=== PATIENT | male | born 1985 | race Caucasian/White ===

== ENCOUNTER 2019-03-04 12:45 | Outpatient (CLI) | payer OTHER ==
[2019-03-04 13:14] LABS: #Basophils 0.1 thou/uL (0.0-0.2); #Eosinphils 0.1 thou/uL (0.0-0.7); #Lymphocytes 2.2 thou/uL (1.20-3.40); #Monocytes 0.7 thou/uL (0.11-0.59); %Basophils 1.1 % (0.0-1.0); %Lymphocytes 31.5 % (21.0-51.0); %Monocytes 9.6 % (0.0-10.0); %Neutrophils 56.8 % (42.0-75.0); Mean Corpuscular HGB CONC 33.5 g/dL (32.0-36.0); Mean Corpuscular Hemoglobin 28.7 pg (27.0-31.0); Mean Corpuscular Volume 85.7 fL (78.0-98.0); Mean Platelet Volume 8.3 fL (7.4-10.4); Platelet Count 207 thou/uL (130-400); Red Blood Cell (RBC) Count 5.57 mill/uL (4.70-6.10)
[2019-03-04 13:43] LABS: Anion Gap 13 mmol/L (10-20); BUN (Urea Nitrogen) 11 mg/dL (8.9-20.6); Calc. Creatinine Clearance 0 mL/min (70-130); Calcium 9.5 mg/dL (7.8-10.44); Carbon Dioxide 26 mmol/L (22-29); Chloride 103 mmol/L (98-107); Estimated GFR-MDRD 77; Glucose 91 mg/dL (70-105); Potassium 4.2 mmol/L (3.5-5.1); Sodium 138 mmol/L (136-145)
== END 2019-03-04 12:46 | disposition home or self-care (01) ==
LOC: LABBT 12:45
PROVIDERS: ATTEND Specialist
DX: Z01.812 Encounter for preprocedural laboratory examination (principal); K60.3 Anal fistula
CPT/HCPCS: 80048; 85025

== ENCOUNTER 2019-03-05 10:36 | Day surgery (SDC) | payer OTHER ==
[2019-03-04 13:10] VITALS: BMI 32.8
[2019-03-05] MEDS ORDERED: Sodium Chloride 0.9% 100 ML ONE (10:56)
[2019-03-05] MEDS ORDERED: cefOXitin 2 GM VIAL ONE ×2 (10:56)
[2019-03-05] MEDS ORDERED: Ketorolac Tromethamine 30 MG/ML VIAL ONE (10:56)
[2019-03-05] MEDS ORDERED: Fleet Enema 133 ML BOT PR SCH (11:45)
[2019-03-05] MEDS ORDERED: Fentanyl 100 MCG/2 ML VIAL ONE (12:17)
[2019-03-05] MEDS ORDERED: Bupivacaine/Epinephrine 0.25% 30 ML VIAL ONE (12:20)
[2019-03-05] MEDS ORDERED: Lidocaine 2% Jelly 5 ML TUBE ONE (12:20)
--- NOTE | 2019-03-06 09:26 | OP ---
DATE OF PROCEDURE: 03/05/2019 PREOPERATIVE DIAGNOSIS: [id number]. POSTOPERATIVE DIAGNOSIS: [id number]. OPERATION PERFORMED: Complex anal fistulotomy. ANESTHESIA: General endotracheal. INDICATIONS: The patient is a 33-year-old white male. He presents with obvious anal fistula. The external opening is about 3 cm from the anal verge and is located at about the 3 o'clock radian. He is taken to the operating room at this time for examination under anesthesia and fistulotomy. DESCRIPTION OF OPERATION: Informed consent was obtained. The patient was taken to the operating room, where general anesthesia obtained with the patient in supine position. He was placed in dorsal lithotomy position. Perianal area was trimmed of hair, prepped with Betadine, draped in sterile fashion. Local anesthetic was infiltrated in a 4-quadrant intersphincteric fashion using 0.25% Marcaine with epinephrine. Digital and speculum examination were carried out of the anal canal in the rectum. There was no dominant palpable abnormality or mass or any visible abnormality within the anal canal or rectum. Attention was then turned to the external anal fistula opening. I cannulated this easily with an 18-gauge Angiocath and flushed this with peroxide. I was able to visualize the peroxide emanating internally at the dentate line. It was difficult to see the opening as appeared to be coming from under a fold, probably associated with one of the valves of Wick. I then obtained a lacrimal duct probe. I passed this along the fistula tract, but in spite of numerous attempts, I was unable to pass this through the opening into the anal canal. I therefore decided to flush this with peroxide colored with methylene blue. I then dissected along the lacrimal duct probe as far and as it passed, ensuring that I was still dissecting the area of the blue-stained fistula tract. I then dissected further along that fistula tract. I was able to pass the lacrimal duct probe a little further internally. I had at one point the ability to pass the lacrimal duct probe further and it seemed to pass along the tract. I was able at one point to pass this through into the anal canal. Using this as a guide, I dissected further along the top of the lacrimal duct probe. I dissected until I encountered the sphincter mechanism. I dilated the tract with hemostats and curette. I passed a blue vessel loop along the tract as well. It was at this point that I discerned that there was not a significant volume of sphincter and it was all internal sphincter and rather than place a seton, I elected to divide this fairly small segment of internal sphincter. This was done with electrocautery. Hemostasis was obtained with electrocautery and the remainder of the wound was open. I curetted the area that was blue-stained. I then packed the wound with gauze and placed to external gauze dressing along with mesh pants. There were no complications. The patient tolerated the procedure well and was taken to recovery room in stable condition. Job ID: [id number]
== END 2019-03-05 16:00 | disposition home or self-care (01) ==
LOC: SDC 10:36
PROVIDERS: ATTEND Specialist
PROC: 0D8R3ZZ Division of Anal Sphincter, Percutaneous Approach (ICD-10-PCS; principal; 2019-03-05)
DX: K60.3 Anal fistula (principal); I10 Essential (primary) hypertension; F41.9 Anxiety disorder, unspecified; Z79.899 Other long term (current) drug therapy
CPT/HCPCS: J0131; J0694; J1885; J3010; J3490; Q9968

== ENCOUNTER 2024-06-10 18:54 | Emergency (ER) | payer BC, OTHER ==
[~2024-06-10 18:54] MED LIST: Iopamidol-370 76% 500 ML MDV (1 ML CHARGE) ONE
[2024-06-10] MEDS ORDERED: Ketorolac Tromethamine 30 MG (1 mL) VIAL ONE ×2 (19:47→21:21)
[2024-06-10] MEDS ORDERED: Ondansetron PF 4 MG/2 ML Vial ONE (19:48)
[2024-06-10 20:31] LABS: #Basophils 0.04 10x3/uL (0.0-0.2); %Basophils 0.5 % (0.0-1.0); %Eosinophils 0.8 % (0.0-10.0); %Lymphocytes 18.8 % (21.0-51.0); %Monocytes 9.1 % (0.0-10.0); %Neutrophils 70.7 % (42.0-75.0); Hematocrit 46.3 % (42.0-52.0); Hemoglobin 15.5 g/dL (14.0-18.0); Mean Corpuscular HGB CONC 33.5 g/dL (32.0-36.0); Mean Corpuscular Hemoglobin 28.9 pg (27.0-31.0); Mean Corpuscular Volume 86.4 fL (78.0-98.0); Mean Platelet Volume 10.4 fL (7.4-10.4); Platelet Count 243 10x3/uL (130-400); RBC Distribution Width 12.9 % (11.5-14.5); Red Blood Cell (RBC) Count 5.36 mill/uL (4.70-6.10)
[2024-06-10 20:53] LABS: ALT (SGPT) 44 U/L (8-55); AST (SGOT) 43 U/L (5-34); Albumin 4.2 g/dL (3.5-5.0); Alkaline Phosphatase 69 U/L (40-110); Anion Gap 13 mmol/L (10-20); BUN (Urea Nitrogen) 14 mg/dL (8.9-20.6); Bilirubin, Total 0.5 mg/dL (0.2-1.2); Calc. Creatinine Clearance 0 mL/min (70-130); Calcium 9.6 mg/dL (7.8-10.44); Carbon Dioxide 24 mmol/L (22-29); Chloride 104 mmol/L (98-107); Estimated GFR 80; Globulin 3.1 g/dL (2.4-3.5); Glucose 97 mg/dL (70-105); Lipase 24 U/L (8-78); Protein, Total 7.3 g/dL (6.0-8.3); Sodium 137 mmol/L (136-145)
[2024-06-10 20:58] LABS: Troponin I 0.012 ng/mL (< 0.028)
[2024-06-10] MEDS ORDERED: Pantoprazole 40 MG VIAL ONE (21:21)
[2024-06-10] MEDS ORDERED: Famotidine/PF 20 mg/2ml Vial ONE (21:21)
== END 2024-06-10 21:28 | disposition home or self-care (01) ==
LOC: ERS 18:54
DX: R10.13 Epigastric pain (principal); I10 Essential (primary) hypertension; R94.5 Abnormal results of liver function studies; Z55.6 Problems related to health literacy
CPT/HCPCS: 36415; 71045; 74177; 80053; 83605; 83690; 84484; 85025; 93005; 96374; 96375; J1885; J2405; J2470; J3490; Q9967